=== PATIENT | male | born 1960 | race Caucasian/White ===

== ENCOUNTER 2022-03-25 05:01 | Observation (INO) ==
--- NOTE | 2022-03-02 15:48 | PAT Medication Instructions ---
Medication Instructions Date of Service March 02, 2022 Home Medications acetaminophen 650 mg tablet,extended release (Tylenol 8 Hour) 650 mg PO TID PRN Pain aspirin 81 mg capsule 81 mg PO QAM atorvastatin 20 mg tablet 20 mg PO HS celecoxib 200 mg capsule (Celebrex) 200 mg PO QAM PRN Pain Centrum Silver 1 tab PO QAM naproxen sodium 220 mg tablet (Aleve) 220 mg PO BID PRN Pain omeprazole 40 mg capsule,delayed release 40 mg PO QAM potassium chloride 10 mEq capsule,extended release 10 meq PO QAM albuterol sulfate 90 mcg/actuation aerosol inhaler 2 inh inhalation Q4H PRN illness/bronchitis ascorbic acid (vitamin C) 250 mg chewable tablet (Vitamin C) 250 mg PO QAM cholecalciferol (vitamin D3) 125 mcg (5,000 unit) tablet (Vitamin D3) 15,000 unit PO QAM cyanocobalamin (vitamin B-12) 5,000 mcg sublingual tablet (Vitamin B-12) 5,000 mcg sublingual QAM fluticasone propionate 50 mcg/actuation nasal spray,suspension 1 spray intranasal BID PRN Nasal Congestion omega-3 fatty acids 1,000 mg PO QAM valsartan 160 mg-hydrochlorothiazide 12.5 mg tablet 1 tab PO QAM ASK your surgeon for instructions celecoxib 200 mg capsule (Celebrex) 200 mg PO QAM PRN Pain naproxen sodium 220 mg tablet (Aleve) 220 mg PO BID PRN Pain STOP taking 2 weeks before surgery (or as soon as possible if surgery is within 2 weeks) omega-3 fatty acids 1,000 mg PO QAM DO NOT take the morning of surgery Centrum Silver 1 tab PO QAM potassium chloride 10 mEq capsule,extended release 10 meq PO QAM ascorbic acid (vitamin C) 250 mg chewable tablet (Vitamin C) 250 mg PO QAM cholecalciferol (vitamin D3) 125 mcg (5,000 unit) tablet (Vitamin D3) 15,000 unit PO QAM cyanocobalamin (vitamin B-12) 5,000 mcg sublingual tablet (Vitamin B-12) 5,000 mcg sublingual QAM valsartan 160 mg-hydrochlorothiazide 12.5 mg tablet 1 tab PO QAM Take morning of surgery With a small sip of water, OTHERWISE NOTHING TO EAT OR DRINK AFTER MIDNIGHT: acetaminophen 650 mg tablet,extended release (Tylenol 8 Hour) 650 mg PO TID PRN Pain (if needed) aspirin 81 mg capsule 81 mg PO QAM (continue as normal unless told otherwise by surgeon) omeprazole 40 mg capsule,delayed release 40 mg PO QAM albuterol sulfate 90 mcg/actuation aerosol inhaler 2 inh inhalation Q4H PRN illness/bronchitis (use if needed; please bring rescue inhaler with you to hospital day of surgery if possible) fluticasone propionate 50 mcg/actuation nasal spray,suspension 1 spray intranasal BID PRN Nasal Congestion (if needed) Take evening before surgery acetaminophen 650 mg tablet,extended release (Tylenol 8 Hour) 650 mg PO TID PRN Pain (if needed) atorvastatin 20 mg tablet 20 mg PO HS albuterol sulfate 90 mcg/actuation aerosol inhaler 2 inh inhalation Q4H PRN illness/bronchitis (if needed) fluticasone propionate 50 mcg/actuation nasal spray,suspension 1 spray intranasal BID PRN Nasal Congestion (if needed) Other Notes If you have any questions please call us at [phone] or [phone] or [phone] or [phone]
--- NOTE | 2022-03-11 14:09 | Anesthesiology Consultation ---
Date of Service March 11, 2022 Assessment & Plan (1) Encounter for pre-operative examination: - will attempt to obtain copy of positive COVID test from [place] urgent [facility] 02/18. - Pt reports upcoming PCP evaluation 03/16/22. - limb care alert status: pt requests avoidance of right arm due to multiple bone spurs and shoulder discomfort. - Outpatient joint assessment: Patient is currently scheduled for inpatient pathway. If re-evaluated pending system levels during current pandemic/surgeon requests outpatient pathway, patient is not acceptable candidate for outpatient joint program from anesthesia standpoint. Chart Review Chart Review: Pending: Refer to Additional Notes / Consult section and Patient seen in Pre Admission Testing Teaching & Discussion Pre-Anesthesia Teaching/Discussion Notes: Instructed NPO after midnight before surgery, except medications with 15 cc of water. Medication instructions provided according to the PAT guidelines. History Surgery Operation Date: 03/25/22 12:50 Proposed Procedures p Right Total Hip Arthroplasty Uncemented - Fady Malcolm MD Height/Weight Height: 5 ft 8 in Weight: 118.841 kg Allergies Allergy/AdvReac Type Severity Reaction Status Date / Time No Known Allergies Allergy Verified 02/24/22 11:18 Medications Home Medications Medication Instructions Recorded Confirmed Last Taken acetaminophen 650 mg 650 mg PO TID PRN Pain 11/05/21 02/24/22 Unknown tablet,extended release (Tylenol 8 Hour) aspirin 81 mg capsule 81 mg PO QAM 11/05/21 02/24/22 Unknown atorvastatin 20 mg tablet 20 mg PO HS 11/05/21 02/24/22 Unknown celecoxib 200 mg capsule (Celebrex) 200 mg PO QAM PRN Pain 11/05/21 02/24/22 Unknown pjdkcnsa-vgh-glinm acid 0.4 1 tab PO QAM 11/05/21 02/24/22 Unknown mg-lycopene 300 mcg-lutein 250 mcg tablet (Centrum Silver) naproxen sodium 220 mg tablet 220 mg PO BID PRN Pain 11/05/21 02/24/22 Unknown (Aleve) omeprazole 40 mg capsule,delayed 40 mg PO QAM 11/05/21 02/24/22 Unknown release potassium chloride 10 mEq 10 meq PO QAM 11/05/21 02/24/22 Unknown capsule,extended release albuterol sulfate 90 mcg/actuation 2 inh inhalation Q4H PRN 02/24/22 02/24/22 Unknown aerosol inhaler illness/bronchitis ascorbic acid (vitamin C) 250 mg 250 mg PO QAM 02/24/22 02/24/22 Unknown chewable tablet (Vitamin C) cholecalciferol (vitamin D3) 125 15,000 unit PO QAM 02/24/22 02/24/22 Unknown mcg (5,000 unit) tablet (Vitamin D3) cyanocobalamin (vitamin B-12) 5,000 mcg sublingual QAM 02/24/22 02/24/22 Unknown 5,000 mcg sublingual tablet (Vitamin B-12) fluticasone propionate 50 1 spray intranasal BID PRN Nasal 02/24/22 02/24/22 Unknown mcg/actuation nasal Congestion spray,suspension omega-3 fatty acids 1,000 mg PO QAM 02/24/22 02/24/22 Unknown valsartan 160 1 tab PO QAM 02/24/22 02/24/22 Unknown mg-hydrochlorothiazide 12.5 mg tablet Past Medical History Medical History (Updated 03/11/22 @ 15:15 by Inocencia Jamison PA-C) GERD (gastroesophageal reflux disease) controlled, stable per pt History of COVID-19 x3 total. last tested positive 02/04/22 -> URI, nasal congestion, fatigue. tested positive at Urgent Care in [place]- symptoms fully resolved, denies hospitalization Hyperlipidemia Hypertension controlled, stable per pt Limb alert care status pt requests avoidance of right arm due to multiple bone spurs and shoulder discomfort Nausea and vomiting after administration of anesthetic agent denies needing scop patch Pulmonary embolism right lung 11/06/21 [facility] (unknown cause) -- treated with anticoagulants for ~2 months, finished 01/2022. Sleep apnea cpap-compliant Patient denies h/o stroke, seizures, heart attack, heart failure, DM, or blood transfusions. Exercise / Class Metabolic Activity II 4-5 Yardwork/Stairs/Walk up hill (denies chest discomfort or shortness of breath with 1 FOS) Past Family History Family History Other No family history of adverse response to anesthesia Past Surgical History Surgical History H/O umbilical hernia repair History of colonoscopy History of dental surgery molar teeth removal S/P appendectomy S/P left inguinal hernia repair S/P T&A (status post tonsillectomy and adenoidectomy) Past Anesthesia History No Family Hx of Anesthesia Complications and Other (occasional dry heaving post- op, "if woken too quickly") History of PONV No Hx of Motion Sickness and History of PONV (denies needing scop patch) Social History Smoking Status: Never smoker Do You Dip or Chew Tobacco: No Hx Alcohol Use: Yes alcohol intake frequency: holidays/special occasions only Hx Substance Use: No substance use type: does not use Review of Systems Chronic occasional cough, occasionally productive of clear sputum; denies blood tinged sputum or hemoptysis. Denies change or worsening. Patient denies chest pain, shortness of breath, dyspnea on exertion, fever, chills, or palpitations. Physical Exam Vital Signs Vitals BP 146/92 P 78 TEMP 98.5 SP02 98% on RA RESP 17 Physical Full cervical extension range of motion without pain TMD 3.5 finger breadths Mallampati Score 2 Dentition: several chipped teeth; denies loose teeth, caps/crowns, implants or bridges Lungs: normal respiratory effort. Clear throughout to auscultation, no adventitious breath sounds Cardiac: regular rate and rhythm, no murmurs noted Carotid arteries: negative bruit bilat Lab Results Anesthesia Preop Results Results Anesthesia Widget: WBC 5.09 K/ul (4.8-10.8) 03/11/22 Hgb 15.8 g/dl (14.0-18.0) 03/11/22 Hct 47.0 % (40.1-51.0) 03/11/22 Plt 216 K/uL (130-400) 03/11/22 Na 141 mmol/L (136-145) 03/11/22 K 4.5 mmol/L (3.5-5.1) 03/11/22 Cl 106 mmol/L (98-107) 03/11/22 CO2 31 mmol/L (21-32) 03/11/22 BUN 21 mg/dl (6-23) 03/11/22 Creat 0.73 mg/dl (0.6-1.4) 03/11/22 Glucose Level 102 mg/dl (70-99(Fasting)) H 03/11/22 PT 10.8 Seconds (9.0-12.0) 03/11/22 PTT 32.2 Seconds (21.0-31.0) H 03/11/22 INR 1.0 (0.9-1.1) 03/11/22 Blood Type O Negative 03/11/22 Antibody Screen NEGATIVE 03/11/22 Testing Electrocardiogram Date: 03/11/22 NSR, rate 79 bpm RBBB Chest X-Ray Date: 03/11/22 No lines and tubes are seen. The cardiomediastinal silhouette is normal. The lungs are clear. No evidence of pleural effusion or pneumothorax. IMPRESSION: No acute chest disease. COVID-19 Risk Screen Screening Information COVID-19 Screen Date: 03/11/22 Exposure 21 Days Family/Household +COVID Last 21 Days: No Exposure 10 Days Any COVID Exposure Last 10 Days: No Symptoms Last 10 Days Experienced COVID Sx Last 10 Days: No + COVID 0-90 Days COVID + in Last 0-90 Days: Yes + COVID Test 0-10 Day: No + COVID Test 11-90 Day: Yes
--- NOTE | 2022-03-20 20:09 | History and Physical Report ---
DATE OF SERVICE: 03/25/2022 CHIEF COMPLAINT: Right hip pain and discomfort. HISTORY OF PRESENT ILLNESS: The patient is a 62-year-old gentleman who presents now for surgical avani atment of his right hip. I was initially seeing him for some knee arthritis. He has about ____ year history of bilateral knee pain and discomfort that has slowly gotten worse over time. We have been putting some shots in his knees that help very temporarily. Over the past 4 months, he has developed increased pain and discomfort in his right hip. He describes groin pain, thigh pain radiating down to his knee. It has become more disabling. He limps all the time, more as the day goes on. He is h oping to have his hip fixed as it is more painful than the knees. PAST MEDICAL HISTORY: Significant for: 1. Hypertension. 2. Obesity, BMI of 39. 3. History of COVID x2, most recently around [facility]. PAST SURGICAL HISTORY: Includes: 1. Tonsillectomy. 2. Herniorrhaphy. 3. Appendectomy. 4. Oral surgery. 5. Abdominal hernia. ALLERGIES: None. CURRENT MEDICATIONS: Include: 1. Valsartan. 2. Potassium. 3. Celebrex. 4. Vitamin D3. 5. Atorvastatin. 6. Low-dose aspirin. FAMILY HISTORY: Noncontributory. SOCIAL HISTORY: A 62-year-old male. He is a . He has 3 children/daughters who look after hi m. 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 Rare alcohol intake. FAMILY HISTORY: Significant for hypertension. REVIEW OF SYSTEMS: Admits to hypertension and obesity. No chest pain or shortness of breath. He ap parently does have some history of thrombosis in the past, but no clotting disorder. He was on some blood thinner for a while, but has been off. No documented thrombosis. PHYSICAL EXAMINATION: GENERAL: Shows a pleasant, fairly large middle-aged male. HEENT: Benign. NECK: Supple. No lymphadenopathy. LUNGS: Clear to auscultation. HEART: Has a regular rate and rhythm. ABDOMEN: Soft, nontender, nondistended. EXTREMITIES: Grossly neurovascularly intact except as follows: Examination of the right leg reveale d patient walks with a limp. His leg lengths appear pretty equal. He does have stiffness and pain w ith hip motion and internally rotates to neutral. This does create his pain. Examination of both kn ees reveals varus alignment to his knees. He has got some bony hypertrophy medially. Range of motio n 10-110 bilaterally. X-RAYS: X-rays of the right hip were reviewed. They are compared to x-rays from 3 months ago, which shows significant progression of his hip arthritis. He has still some joint space, but clearly ther e has been a difference and progression. ASSESSMENT: A 62-year-old male with advanced right hip degenerative joint disease and bilateral knee degenerative joint disease. The hip has become more severe over the past 4 months and limiting him, and he would like to have his hip fixed. PLAN: We will take him to the operating room and do right total hip replacement. The risks and bene fits of this procedure were explained to the patient and include but not limited to DVT, PE, , i nfection, neurological injury, vascular injury, bleeding problem, pain, limited range of motion, stif fness, failure to relieve his symptoms, incomplete relief of symptoms, need for further surgery in e future, etc. The patient understands and desires to proceed. Informed consent was obtained. The patient does have a history of thrombosis-like history in the past. No real documented thrombosi s. No known clotting disorders. We will use aspirin twice a day and begin early mobilization and TE D stockings for DVT prophylaxis. His daughters are going to help and assist in his care. Job ID: [id number]
[2022-03-25] MEDS ORDERED: ACETAMINOPHEN 500 MG TAB PO SCH (06:00)
[2022-03-25] MEDS ORDERED: Scopolamine 1 MG TDSY TD SCH (06:00)
[2022-03-25] MEDS ORDERED: LR 60ML/HR IV SCH (06:00)
[2022-03-25] MEDS ORDERED: CeleBREX 200 MG CAP PO SCH (06:00)
[2022-03-25] MEDS ORDERED: FAMOTIDINE 20 MG TAB PO SCH (06:00)
[2022-03-25] MEDS ORDERED: METOCLOPRAMIDE HCL 10 MG TABLET PO SCH (06:00)
[2022-03-25] MEDS ORDERED: ceFAZolin 2000MG 2,000 MG/15 ML SYR IV SCH (06:00)
[2022-03-25] MEDS ORDERED: LR 500ML BOLUS, THEN 15ML/HR IV SCH (06:00)
[2022-03-25] MEDS ORDERED: TRANEXAMIC ACID 1,000 MG **IV Pre-op IV SCH (06:00)
[2022-03-25] MEDS ORDERED: BUPIVACAINE 0.5 % 5 MG/1 ML PF 10ML VIAL ONE (06:16)
[2022-03-25] MEDS ORDERED: BUPIVACAINE/EPINEPHRINE 0.5% MPF 1:200,000 30 ML VIAL ONE (06:32)
[2022-03-25] MEDS ORDERED: LIDOCAINE 2% MPF LOCAL 5 ML VIAL INFIL ONE (06:40)
[2022-03-25] MEDS ORDERED: MIDAZOLAM HCL 1 MG/ML 2ML VIAL ONE ×2 (06:40→07:13)
[2022-03-25] MEDS ORDERED: ONDANSETRON INJ 2 MG/ML 2 ML VIAL ONE (06:40)
[2022-03-25] MEDS ORDERED: PROPOFOL IV EMULSION 10 MG/ML 20 ML VIAL IV ONE ×2 (06:40→07:29)
[2022-03-25] MEDS ORDERED: fentaNYL citrate 100 MCG/2 ML VIAL ONE ×2 (06:40→07:36)
[2022-03-25] MEDS ORDERED: MoRPHine SULFATE PF 1 MG/ML 10 ML AMP/VIAL ONE (06:41)
--- NOTE | 2022-03-25 06:58 | History & Physical Bridge Note ---
Date of Service March 25, 2022 History & Physical Bridge Note I have examined the patient, reviewed the History & Physical and in the interval since the performance of the History & Physical I have noted the following changes of clinical significance: no changes noted
[2022-03-25] MEDS ORDERED: ATROPINE SULFATE 0.1 MG/ML 10ML SYR IV PRN (07:06)
[2022-03-25] MEDS ORDERED: NALBUPHINE HCL INJ 10 MG/ML AMP IV PRN (07:06)
[2022-03-25] MEDS ORDERED: NALOXONE HCL 1 MG in SODIUM CHLORIDE 0.9% 1000ML 1,000 ML IV PRN (07:06)
[2022-03-25] MEDS ORDERED: diphenhydrAMINE 50 MG/ML VIAL IV PRN (07:06)
[2022-03-25] MEDS ORDERED: MoRPHine SULFATE 2 MG/ML CARP IV PRN (07:06)
[2022-03-25] MEDS ORDERED: ePHEDrine sulfate 50 MG/ML AMP IV PRN ×2 (07:06)
[2022-03-25] MEDS ORDERED: NALOXONE HCL 0.08 MG in SYRINGE 1.8 ML IV PRN (07:06)
[2022-03-25] MEDS ORDERED: ONDANSETRON INJ 2 MG/ML 2 ML VIAL IV PRN ×2 (07:06)
[2022-03-25] MEDS ORDERED: MoRPHine SULFATE PF 1 MG/ML 10 ML AMP/VIAL INT SPINAL ONE (07:06)
[2022-03-25] MEDS ORDERED: NALOXONE HCL 0.4 MG/1 ML VIAL/CARP IV PRN ×2 (07:06→13:21)
[2022-03-25] MEDS ORDERED: LACTATED RINGER'S 500 ML IV PRN (07:06)
[2022-03-25] MEDS ORDERED: PROMETHAZINE HCL 6.25 MG in SODIUM CHLORIDE 0.9% 50 ML IV PRN (07:06)
[2022-03-25] MEDS ORDERED: SODIUM CHLORIDE 0.9% 1000ML 1,000 ML IV SCH (07:15)
[2022-03-25] MEDS ORDERED: DC INTRASPINAL MORPHINE SCH (07:15)
[2022-03-25] MEDS ORDERED: NO NARCOTICS OR SEDATIVES SCH (07:15)
[2022-03-25] MEDS ORDERED: PHENYLEPHRINE HCL 10 MG/ML VIAL ONE (07:46)
[2022-03-25] MEDS ORDERED: VASOPRESSIN 20 UNIT/ML VIAL ONE (07:46)
[2022-03-25] MEDS ORDERED: ePHEDrine sulfate 50 MG/ML SYR ONE (07:50)
[2022-03-25] MEDS ORDERED: KETAMINE 50 MG/5 ML SYRINGE ONE (08:33)
--- NOTE | 2022-03-25 08:59 | Operative Report ---
PG Post Operative Report Pre & Post Diagnosis Operation Date: 03/25/22 07:00 Pre-Op Diagnosis: Right Hip Degenerative Joint disease Post-Op Diagnosis: Right Hip Degenerative Joint disease I identified the patient and participated in the time-out.: Yes Procedure Operation Date: 03/25/22 07:00 Actual Procedures p Right Total Hip Arthroplasty(Right) - Fady Malcolm MD Surgeon Fady Malcolm MD Bed Laborer Luis Miguel Dukes PA-C Estimated Blood Loss 200 Findings Consistent with Post-Op Diagnosis Operative findings were large soft tissue envelope. He did have a full- thickness cartilage loss of the superior aspect of his femoral head. There was not much in the way eburnation or osteophyte formation. Moderate-sized joint effusion. Fluids 2400 cc Specimens Right Femoral Head sent for Pathology Anesthesia Type Spinal MAC Complications none Disposition Accompanied Patient To Recovery: No Indications 62 year-old gentleman with 6 months of increasing hip pain. X-rays showed progressive hip arthritis. Failed conservative measures. Desired right hip replacement Description of Procedure Operative implants consisted of: 1 Biomet G7 size 54 mm acetabular shell. 2. 6.5 cancellous acetabular screws 1 of 35 mm length and 1 of 30 mm length. 3. [place] hole big data hadoop developer. 4. Highly cross-linked polyethylene liner with a 54 mm outer diam and 36 mm inner diam with a stock placed inferior and posterior. 5. DePuy Corail size 11 KLA femoral stem. 6. +8.5/36 mm ceramic articular ball. The patient was taken the operating, identified, placed on the operating table supine position but all contact areas were appropriately padded. IV antibiotics provided by anesthesia team. Spinal anesthetic had been implemented holding area. Gonsales catheter was placed in sterile fashion. Patient then placed in the left lateral decubitus position. An axillary roll was placed. A Stulberg hip positioner was used for positioning. The right hip and leg were then prepped and draped in usual sterile fashion. A posterior lateral puncture of the right hip was then performed through a curvilinear incision centered over the greater trochanter. Sharp dissection was carried through subcutaneous tissue down to level the IT band gluteal fascia. A fascial envelope was fairly thick. The IT band and gluteal fascia were incised longitudinally in line with skin incision. The underlying greater bursa was excised. The piriformis and external rotators as well as the posterior hip joint capsule were then taken off the posterior aspect of the hip as a single layer. Great care was taken throughout the procedure protect the sciatic nerve at all times. Hip was internally rotated and dislocated. Femoral neck osteotomy cut was made with Final Cut about 15 mm above the lesser trochanter. Femoral head was removed and sent for pathology. The femur was retracted anteriorly. Attention drawn the acetabulum. The acetabular labrum was excised. Pulmonary fat was excised. Sequential reaming the acetabulum was then performed begin with a size 45 and progressing up to 53. We did use the 54 reamer. A 54 mm Biomet G7 acetabular shell was then placed in about 40 degrees lateral opening and 20 degrees of anteversion. Fairly large soft tissue envelope and I worked hard to get this in proper position. Was fixed with two 6.5 cancellous acetabular screws. A trial liner was placed. Attention drawn the femur. The proximal femur was entered with a [employer] cutter followed by canal finder and lateralizing reamer. I then broached begin the size 8 and progressing up to a 11. We got excellent fit and 11. I did not think we could get a bigger implant in. We then trialed the hip. The hip was fully stable with a +5 articular ball but the soft tissue tension seemed a little lax we did elect to place the +8.5 articular ball. Leg length seemed equal. The hip was fully stable. Attention drawn to place these implants. Nupathe all trial implants were removed. [place] hole big data hadoop developer was placed. Highly cross-linked polyethylene liner was placed with a stock placed inferior and posterior. I did use a stock to maximize his stability in flexion. A diffuse KLA size 11 femoral stem was impacted in position. A +8.5/36 mm ceramic articular ball was placed. Hip was located once again found to be stable. Attention drawn toward closing. Wounds irrigated scopes amounts of pulsatile lavage solution. We did inject locally with 60 cc of half percent Marcaine with epinephrine. Posterior capsule and external rotators were then repaired through drill holes as a single layer with #2 Tycron suture. The IT band gluteal fascia then closed in 1 PDS suture running fashion for subcutaneous tissue then closed with 2 layers with a deep layer #2 Vicryl sutures in the subcutaneous tissues with 2 Dexon suture in a buried interrupted fashion. Skin was closed with skin salvador. Leg was then cleaned and dried and a Prevena VAC dressing was applied due to the large soft tissue envelope. Patient then transferred to the recovery room in stable condition. Patient tolerated the procedure well and there are no complications. `Luis Miguel Dukes, my physician equity sales assistant, was present for the entire procedure. His assistance was essential and required for appropriate patient positioning, prepping and draping, surgical exposure, performing the technical details of the operation, placement the implants, closure of the wound, and placement of the sterile bandage. I attest to the content of the Intraoperative Record and any orders documented therein. Any exceptions are noted below.
--- NOTE | 2022-03-25 10:43 | Anesthesiology Progress Note ---
Date of Service March 25, 2022 Anesthesia Post Procedure Vital Signs Vital Signs: Temp Pulse Resp BP Pulse Ox O2 Del Method O2 Flow Rate 03/25/22 10:30 83 12 111/70 100 Nasal Cannula 4 03/25/22 10:20 36 C L 86 12 101/70 95 Nasal Cannula 4 03/25/22 10:10 75 15 103/70 100 Nasal Cannula 4 03/25/22 10:00 88 19 108/76 100 Nasal Cannula 2 03/25/22 09:50 90 19 104/63 100 Nasal Cannula 4 03/25/22 09:40 36.0 C L 88 18 108/74 94 Nasal Cannula 4 03/25/22 09:30 80 18 125/76 94 Nasal Cannula 4 03/25/22 09:20 87 18 109/79 100 Nasal Cannula 4 03/25/22 09:10 83 18 95/58 L 100 Nasal Cannula 4 03/25/22 09:00 87 18 100/43 L 98 Nasal Cannula 4 03/25/22 08:54 36.0 C L 85 18 83/55 L 97 Nasal Cannula 4 03/25/22 05:49 36.9 C 103 H 18 145/89 H 97 Room Air 03/25/22 05:49 Room Air, CPAP Pain Intensity Right Hip: Pain Intensity: 2 Transfer of Care Handoff Completed per policy Notes Mental Status: alert / awake / arousable and participated in evaluation Patient Amnestic to Procedure: Yes Nausea / Vomiting: adequately controlled Pain: adequately controlled Airway Patency, RR, SpO2: stable & adequate BP & HR: stable & adequate Hydration State: stable & adequate Neuraxial Anesthesia: was administered and sensory block is resolving Anesthetic Complications: no major complications apparent and Pt Satisfied with anesthetic care
[2022-03-25] MEDS ORDERED: VALSARTAN/HCTZ 160/12.5MG TAB PO SCH (13:21)
[2022-03-25] MEDS ORDERED: oxyCODONE HCL IR 5 MG TAB (IMMEDIATE RELEASE) PO PRN (13:21)
[2022-03-25] MEDS ORDERED: MAGNESIUM HYDROXIDE SUSP 30 ML UDC PO PRN (13:21)
[2022-03-25] MEDS ORDERED: ASCORBIC ACID 250 MG PO SCH (13:21)
[2022-03-25] MEDS ORDERED: ALBUTEROL HFA 8 GM INHALER INH PRN (13:21)
[2022-03-25] MEDS ORDERED: MULTIVITAMIN TAB PO SCH (13:21)
[2022-03-25] MEDS ORDERED: bisacodyL 10 MG SUPP PR PRN (13:21)
[2022-03-25] MEDS ORDERED: ALUMINUM/MAGNESIUM SUSP 30 ML UDC PO PRN (13:21)
[2022-03-25] MEDS ORDERED: FLUTICASONE PROPIONATE NA SPR 16 GM BTL NAE PRN (13:21)
[2022-03-25] MEDS ORDERED: CHOLECALCIFEROL 5,000 UNITS 125 MCG TAB PO SCH (13:21)
[2022-03-25] MEDS ORDERED: DOCUSATE SODIUM/SENNA 50/8.6MG TAB PO SCH (13:21)
--- NOTE | 2022-03-25 14:58 | XRay Report ---
AP PELVIS, CROSSTABLE LATERAL RIGHT HIP History: Right total hip arthroplasty. Degenerative arthritis. Postop. FINDINGS: The patient is status post a right total hip arthroplasty. The hardware is intact. No fract ure or dislocation. Skin salvador are in place. IMPRESSION: Right total hip arthroplasty. No evidence for hardware complication ACT 112: Negative or not required by law. Electronically signed by: Conor Palomares M.D. 03/25/2022 2:57 PM
[2022-03-25] MEDS ORDERED: VALSARTAN 80 MG TAB PO SCH (15:00)
[2022-03-25] MEDS ORDERED: TRANEXAMIC ACID / 0.7% NACL 1,000 MG/100 ML BAG IV SCH (15:00)
[2022-03-25] MEDS: SODIUM CHLORIDE 0.9% 1000ML 1,000 ML IV SCH (16:12)
[2022-03-25] MEDS: ceFAZolin 2000MG 2,000 MG/15 ML SYR IV SCH (16:18)
[2022-03-25] MEDS: DOCUSATE SODIUM 100 MG CAP PO SCH ×2 (16:18→20:56)
[2022-03-25] MEDS: CEROVITE ADV FORMULA TAB PO SCH (16:19)
[2022-03-25] MEDS: ASCORBIC ACID 500 MG TAB PO SCH (16:19)
[2022-03-25] MEDS: hydroCHLOROthiazide 25 MG TAB PO SCH (16:20)
[2022-03-25] MEDS: ACETAMINOPHEN 500 MG TAB PO SCH ×2 (16:22→20:57)
[2022-03-25] MEDS: KETOROLAC 30 MG/ML VIAL IV SCH ×2 (16:22→20:56)
[2022-03-25] MEDS: POTASSIUM CHLORIDE 10 MEQ TABCR PO SCH (16:23)
[2022-03-25] MEDS: CYANOCOBALAMIN (B-12) 2,500 MCG TABLET SL SCH (16:23)
[2022-03-25] MEDS: Scopolamine CHECK PATCH PLACEMENT SCH (17:05)
[2022-03-25] MEDS: ASPIRIN 81 MG ECTAB PO SCH ×2 (17:08→20:57)
[2022-03-25] MEDS: TAMSULOSIN HCL 0.4 MG CAP PO SCH (17:09)
[2022-03-25] MEDS ORDERED: ATORVASTATIN 20 MG TAB PO SCH (21:00)
[2022-03-25] MEDS ORDERED: SENNA 8.6 MG TAB PO SCH (21:00)
[2022-03-25] MEDS ORDERED: TAMSULOSIN HCL 0.4 MG CAP PO SCH (21:00)
[2022-03-26] MEDS: Scopolamine CHECK PATCH PLACEMENT SCH ×2 (00:07→08:01)
[2022-03-26] MEDS: SODIUM CHLORIDE 0.9% 1000ML 1,000 ML IV SCH (00:07)
[2022-03-26] MEDS ORDERED: ONDANSETRON INJ 2 MG/ML 2 ML VIAL IV PRN (01:06)
[2022-03-26] MEDS ORDERED: diphenhydrAMINE Capsule 25 MG CAP PO PRN (01:06)
[2022-03-26] MEDS ORDERED: HYDROmorphone INJ 1 MG/ML SYRINGE IV PRN (01:06)
[2022-03-26] MEDS ORDERED: METOCLOPRAMIDE HCL INJ 5 MG/ML 2 ML VIAL IV PRN (01:06)
[2022-03-26] MEDS: ceFAZolin 2000MG 2,000 MG/15 ML SYR IV SCH (01:21)
[2022-03-26] MEDS: KETOROLAC 30 MG/ML VIAL IV SCH ×3 (03:28→14:40)
[2022-03-26] MEDS: ACETAMINOPHEN 500 MG TAB PO SCH ×2 (06:02→14:40)
[2022-03-26 06:04] LABS: Basophils # (auto) 0.02 K/uL (0-0.2); Basophils % (auto) 0.3 %; Eosinophils % (auto) 1.3 %; Hematocrit (blood only) 36.3 % (42.0-52.0); Hemoglobin 12.2 g/dl (14.0-18.0); Immature Granulocytes # (auto) 0.02 K/uL (0.01-0.20); Immature Granulocytes % (auto) 0.3 %; Lymphocytes # (auto) 1.17 K/uL (1.2-3.4); Lymphocytes % (auto) 14.8 %; Mean Corpuscular Hgb Conc 33.6 g/dL (32.0-36.0); Mean Corpuscular Volume 86.4 fL (80.0-100.0); Mean Platelet Volume 9.8 fL (9.4-12.4); Monocytes # (auto) 0.69 K/uL (0.11-0.59); Monocytes % (auto) 8.7 %; Neutrophils # (auto) 5.93 K/uL (1.40-6.50); Neutrophils % (auto) 74.6 %; Platelet Count 159 K/uL (130-400); RDW Coefficient of Variation 13.8 % (11.5-14.5); RDW Standard Deviation 43.3 fL (36.4-46.3); White Blood Count 7.93 K/ul (4.8-10.8)
[2022-03-26 06:23] LABS: Calcium 9.6 mg/dl (8.5-10.1); Potassium 3.8 mmol/L (3.5-5.1)
[2022-03-26 06:28] LABS: BUN Creatinine Ratio 28.2 (10-20); Creatinine Clr Calc Pharmacy 106.9 ml/min; Est GFR (African American) 106.7 ml/min; Est GFR (Non-African American) 92.1 ml/min
--- NOTE | 2022-03-26 07:44 | Progress Notes ---
DATE OF SERVICE: 03/26/2022. SUBJECTIVE: A 62-year-old gentleman, postoperative day #1 from a right hip replacement. He is doing pretty well. Pain is controlled most of the time. No chest pain or shortness of breath. Not feeli ng dizzy or lightheaded. OBJECTIVE: VITAL SIGNS: Temperature 37.1. Vital signs are stable. GENERAL: Shows a pleasant, obese, middle-aged male. I had to wake him this morning. LUNGS: Clear to auscultation. HEART: Regular rate and rhythm. ABDOMEN: Soft, nontender, nondistended. EXTREMITIES: Grossly neurovascularly intact except as follows. Examination of the right hip reveals leg lengths to be equal. His Prevena dry dressings in place. He can dorsiflex and plantarflex his foot appropriately. NEUROLOGIC: He is neurologically intact. LABORATORY DATA: Hemoglobin 12.2. Hematocrit 36.3. Electrolytes are stable. ASSESSMENT: A 62-year-old obese gentleman, postoperative day #1 from right hip replacement, doing re asonably well. Pain is controlled. Hip is located. He is neurologically intact. PLAN: 1. DVT prophylaxis including thigh-high TEDs, SCDs, and aspirin twice a day. 2. PT/OT, weightbear as tolerated. Right total hip protocol. 3. Pain control, doing okay with current pain regimen. 4. Disposition: Plan to discharge to home with some home health. We will see how therapy goes tochi cochranRiya Job ID: [id number]
[2022-03-26] MEDS: CYANOCOBALAMIN (B-12) 2,500 MCG TABLET SL SCH (07:58)
[2022-03-26] MEDS: TAMSULOSIN HCL 0.4 MG CAP PO SCH (07:58)
[2022-03-26] MEDS: POTASSIUM CHLORIDE 10 MEQ TABCR PO SCH (07:59)
[2022-03-26] MEDS: hydroCHLOROthiazide 25 MG TAB PO SCH (07:59)
[2022-03-26] MEDS: DOCUSATE SODIUM 100 MG CAP PO SCH (07:59)
[2022-03-26] MEDS: CEROVITE ADV FORMULA TAB PO SCH (07:59)
[2022-03-26] MEDS: ASCORBIC ACID 500 MG TAB PO SCH (08:00)
[2022-03-26] MEDS ORDERED: dexAMETHasone 10 MG in SYRINGE 0 ML IV SCH (08:00)
[2022-03-26] MEDS: ASPIRIN 81 MG ECTAB PO SCH (08:01)
[2022-03-26] MEDS ORDERED: OMEGA-3 (PURIFIED FISH OIL) 1 GM CAP PO SCH (09:00)
[2022-03-26] MEDS ORDERED: PANTOprazole 40 MG TAB PO SCH (09:00)
[2022-03-26] MEDS ORDERED: CHOLECALCIFEROL 5,000 UNITS 125 MCG TAB PO SCH (09:00)
--- NOTE | 2022-04-02 06:41 | Discharge Summary ---
Date of Service April 02, 2022 Discharge Data Procedures Performed Operation Date: 03/25/22 07:00 Actual Procedures p Right Total Hip Arthroplasty(Right) - Fady Malcolm MD Hospital Course (1) Status post total hip replacement, right: This is a 62 year old patient admitted on 03/25/22 and underwent total hip arthroplasty. He tolerated the procedure well and there were no complications. Transferred to the PACU post op and later to the orthopedic floor for further care. He was given ancef for antibiotic prophylaxis. He was also given IWONA stockings, SCDs, and aspirin for DVT prophylaxis. Hemoglobin, hematocrit, and vital signs were monitored during his hospital stay and remained stable. Did not require any blood transfusions. There were no complications during his hospital stay. By post op day #1 the patient was tolerating a regular diet, pain was reasonably controlled with oral pain medicine, and he was participating in physical therapy. On post op day #1 the patient was discharged home and set up with home health care. He was given printed discharge instructions including prescriptions for extra strength tylenol, aspirin, ketorolac, zofran, senokot, flomax, and oxycodone. Continue physical therapy, weight bearing as tolerated. Continue hip precautions. Continue IWONA stockings. Follow up approximately 2 weeks post op or sooner if there are problems or concerns. Coding Level of Care Code None Diagnoses Status post total hip replacement, right Z96.641
== END 2022-03-26 15:21 | disposition home health service (06) ==
LOC: ASU 05:01 → 4W 05:01